=== PATIENT | male | born 2000 | race Hispanic/Latino ===

== ENCOUNTER 2022-01-09 00:12 | Emergency (ER) | payer OTHER, MEDICAID ==
[~2022-01-09] VITALS: Ht 167.6 cm; Wt 54.4 kg
[2022-01-09] MEDS ORDERED: CYCLOBENZAPRINE HCL 10 MG TABLET PO ONE (01:00)
[2022-01-09] MEDS ORDERED: ONDANSETRON 4MG INJ IVP ONE (01:00)
[2022-01-09] MEDS ORDERED: MORPHINE 2 MG SYG IVP ONE (01:00)
[2022-01-09] MEDS ORDERED: IBUPROFEN 600 MG TABLET PO ONE (01:00)
[2022-01-09] MEDS ORDERED: LACTATED RINGERS 1000ML 1,000 ML IV ONE (01:00)
[2022-01-09] MEDS ORDERED: CYCL-309 PO (02:11)
[2022-01-09] MEDS ORDERED: IBUP-1493 PO (02:11)
[2022-01-09 02:15] VITALS: BP 129/69
== END 2022-01-09 02:37 | disposition home or self-care (01) ==
LOC: EDH 00:12
DX: S39.011A Strain of muscle, fascia and tendon of abdomen, initial encounter (principal); R07.89 Other chest pain; X58.XXXA Exposure to other specified factors, initial encounter; Y93.89 Activity, other specified; Y92.89 Other specified places as the place of occurrence of the external cause; Y99.8 Other external cause status
CPT/HCPCS: 71101